=== PATIENT | male | born 1990 | race Caucasian/White ===

== ENCOUNTER 2017-04-16 21:00 | Emergency (ER) | payer SELFPAY ==
[~2017-04-16] VITALS: Ht 172.7 cm; Wt 92.0 kg
[2017-04-16 21:05] VITALS: Ht 172.7 cm; Wt 92.0 kg
[2017-04-17] MEDS ORDERED: HYDR-906 PO (09:08)
== END 2017-04-16 22:25 | disposition left against medical advice (07) ==
LOC: FTE 21:00
DX: Z53.21 Procedure and treatment not carried out due to patient leaving prior to being seen by health care provider (principal)

== ENCOUNTER 2017-04-17 04:28 | Emergency (ER) | payer SELFPAY ==
[~2017-04-17] VITALS: Ht 170.2 cm; Wt 91.5 kg
[2017-04-17 04:37] VITALS: Ht 170.2 cm; Wt 91.5 kg
[2017-04-17 07:04] LABS: BASOPHIL # 0.1 10^3/ul (0.0-0.1); BASOPHILS % 0.3 % (0.0-2.0); EOSINOPHILS % 0.2 % (0.0-7.0); HEMATOCRIT 46.6 % (42.0-52.0); HEMOGLOBIN 15.5 g/dl (14.0-18.0); LYMPHOCYTES # 2.2 10^3/ul (0.8-2.9); LYMPHOCYTES % 12.1 % (15.0-51.0); MEAN CORPUSCULAR HEMOGLOBIN 28.3 pg (29.0-33.0); MEAN CORPUSCULAR HGB CONC 33.3 g/dl (32.0-37.0); MEAN CORPUSCULAR VOLUME 85.2 fl (82.0-101.0); MEAN PLATELET VOLUME 9.1 fl (7.4-10.4); MONOCYTE # 1.2 10^3/ul (0.3-0.9); MONOCYTES % 6.3 % (0.0-11.0); NEUTROPHIL # 14.8 10^3/ul (1.6-7.5); NEUTROPHILS % 80.4 % (39.0-77.0); PLATELET COUNT 371 10^3/UL (140-415); RED BLOOD COUNT 5.47 10^6/ul (4.70-6.10); RED CELL DISTRIBUTION WIDTH 12.2 % (11.5-14.5); WHITE BLOOD COUNT 18.4 10^3/ul (4.8-10.8)
[2017-04-17 07:25] LABS: ALBUMIN 4.6 g/dl (3.3-4.9); ALBUMIN/GLOBULIN RATIO 1.27; BILIRUBIN,INDIRECT 0.5 mg/dl (0-1.1); BILIRUBIN,TOTAL 0.5 mg/dl (0.2-1.3); CALCIUM 9.6 mg/dl (8.4-10.2); CREATININE 0.78 mg/dl (0.61-1.24); POTASSIUM 3.4 mmol/L (3.5-5.1); TOTAL PROTEIN 8.2 g/dl (6.1-8.1)
[2017-04-17 07:31] LABS: BARBITURATES Negative (NEGATIVE); BENZODIAZEPINES Negative (NEGATIVE); CANNABINOIDS Positive (NEGATIVE); COCAINE Negative (NEGATIVE); OPIATES Negative (NEGATIVE)
[2017-04-17 07:35] VITALS: BP 135/78; PULSE 70; RESP 18; TEMP 98.6
[2017-04-17] MEDS ORDERED: SOD CHLORIDE 0.9% 0 ML ONE (08:05)
[2017-04-17] MEDS ORDERED: IOHEXOL 300MG/ML 150 ML BTL ONE (08:05)
--- NOTE | 2017-04-17 08:45 | RADRPT ---
PROCEDURE: CT Abdomen and Pelvis without contrast. CLINICAL INDICATION: Abdominal pain TECHNIQUE: CT scan of the abdomen and pelvis without contrast was performed on a multidetector hig h-resolution CT scanner. The patient was scanned without intravenous contrast. Coronal and sagittal reformatted images were obtained from the axial source images. Images were reviewed on a high-resol [employer] PACS workstation. The total exam CTDI equals 17.99 mGy and the total exam DLP equals 1263.84 m Gy-cm. One or more of the following dose reduction techniques were used: Automated exposure control. Adjustment of the mA and/or kV according to patient size. Use of iterative reconstruction technique. COMPARISON: None FINDINGS: CT abdomen: The lung bases are clear. The heart size is normal, without pericardial thickening or effusion. Th e liver is normal in size and density without focal mass or intrahepatic biliary dilatation. The sp basia is normal in size and homogeneous in density. The stomach is partially collapsed, but is gross ly unremarkable. The pancreas as visualized is normal. The gallbladder is unremarkable. There is n o evidence for biliary dilatation. The adrenal glands are symmetric and normal. The kidneys are sy mmetrically unremarkable as well. No renal calculus or obstructive uropathy or mass lesion is seen. The aorta is of normal caliber. There is no retroperitoneal lymphadenopathy. The mabel hepatis jhonny on is clear. The bowel and mesentery, as visualized, are equally unremarkable. CT pelvis: The small bowel loops situated within the pelvis are unremarkable. The appendix is normal. The pelv ic organs are normal. The pelvic sidewalls and inguinal regions are clear. The sigmoid colon and r ectum are unremarkable. No mass, lymphadenopathy, or free fluid is seen. No acute inflammation is seen. No osteolytic or osteoblastic lesion is detected. IMPRESSION: 1. No mass, lymphadenopathy, or focal acute inflammatory process is identified. 2. Normal appendix. RPTAT: BB .Kamala Weaver MD, MD Date Time Electronically viewed and signed by .Kamala Weaver MD, MD on 04/17/2017 08:44 .O/
[2017-04-17] MEDS ORDERED: HYDR-906 PO (09:08)
--- NOTE | 2017-04-17 09:11 | ERD ---
ER Documentation Chief Complaint Date/Time DATE: 04/17/17 TIME: 09:08 Chief Complaint abd pain x3 hrs; +etoh +marijuana. Pt in ED tonight, but left after intake HPI This 27-year-old male complains of diffuse lower abdominal pain a few hours ago. He states the pain is crampy and intermittent. No nausea vomiting diarrhea no fever. Patient has no back pain no hematuria dysuria. No prior history of pain like this before. The patient admits to smoking methamphetamines about an hour before his pain started. Pain is currently mild. Nothing seems to make it worse or better ROS All systems reviewed and are negative except as per history of present illness. Medications Home Meds Active Scripts Hydrocodone/Acetaminophen ([place] 5-325 Tablet) 1 Each Tablet, 1 TAB PO Q6H Y for PAIN, #7 TAB Prov:VENU JAY DO 04/17/17 Allergies Allergies: Coded Allergies: No Known Allergy (Unverified , 04/17/17) PMhx/Soc Medical and Surgical Hx: pt denies Medical Hx, pt denies Surgical Hx Hx Psychiatric Problems: No Hx Alcohol Use: Yes (daily) Hx Substance Use: Yes (occasional MJ and meth) Hx Tobacco Use: Yes Smoking Status: Current every day smoker FmHx Family History: No coronary disease Physical Exam Vitals Vital Signs Date Time Temp Pulse Resp B/P Pulse Ox O2 Delivery O2 Flow Rate FiO2 04/17/17 04:37 98.6 120 18 137/88 96 Physical Exam Const: Well-developed, well-nourished Head: Atraumatic, normocephalic Eyes: Normal Conjunctiva, PERRLA, EOMI, normal sclera, no nystagmus ENT: Normal External Ears, Nose and Mouth, moist mucus membranes. Neck: Full range of motion. No meningismus, no lymphadenopathy. Resp: Clear to auscultation bilaterally, no wheezing, rhonchi, rales Cardio: Regular rate and rhythm, no murmurs, S1 S2 present Abd: Soft, diffuse lower abdominal tenderness is mild, non distended. Normal bowel sounds, no guarding or rebound, no pulsitile abdominal masses or bruits Skin: No petechiae or rashes, no ecchymosis , no maculopapular rash Back: No midline or flank tenderness Ext: No cyanosis, or edema, FROM x 4, normal inspection, neurovascularly intact x 4 Neur: Awake and alert, STR 5/5 x 4, sensation intact x 4, no focal findings, cerebellum intact Psych: Normal Mood and Affect Result Diagram: 04/17/17 0654 04/17/17 0654 Results 24 hrs Laboratory Tests Test 04/17/17 06:25 04/17/17 06:54 Urine Opiates Screen Negative Urine Barbiturates Negative Urine Amphetamines Screen POSITIVE Urine Benzodiazepines Screen Negative Urine Cocaine Screen Negative Urine Cannabinoids Positive White Blood Count 18.410^3/ul Red Blood Count 5.4710^6/ul Hemoglobin 15.5g/dl Hematocrit 46.6% Mean Corpuscular Volume 85.2fl Mean Corpuscular Hemoglobin 28.3pg Mean Corpuscular Hemoglobin Concent 33.3g/dl Red Cell Distribution Width 12.2% Platelet Count 14069^3/UL Mean Platelet Volume 9.1fl Neutrophils % 80.4% Lymphocytes % 12.1% Monocytes % 6.3% Eosinophils % 0.2% Basophils % 0.3% Nucleated Red Blood Cells % 0.0/100WBC Neutrophils # 14.810^3/ul Lymphocytes # 2.210^3/ul Monocytes # 1.210^3/ul Eosinophils # 0.010^3/ul Basophils # 0.110^3/ul Nucleated Red Blood Cells # 0.010^3/ul Sodium Level 143mmol/L Potassium Level 3.4mmol/L Chloride Level 102mmol/L Carbon Dioxide Level 29mmol/L Anion Gap 15 Blood Urea Nitrogen 17mg/dl Creatinine 0.78mg/dl Glucose Level 106mg/dl Calcium Level 9.6mg/dl Total Bilirubin 0.5mg/dl Direct Bilirubin 0.00mg/dl Indirect Bilirubin 0.5mg/dl Aspartate Amino Transf (AST/SGOT) 29IU/L Alanine Aminotransferase (ALT/SGPT) 54IU/L Alkaline Phosphatase 128IU/L Total Protein 8.2g/dl Albumin 4.6g/dl Globulin 3.60g/dl Albumin/Globulin Ratio 1.27 Lipase 33U/L Current Medications Medications (Trade) Dose Ordered Sig/Yamel Route PRN Reason Start Time Stop Time Status Last Admin Dose Admin IV Flush 10 ml 10 ml STK-MED ONCE .ROUTE 04/17/17 08:05 04/17/17 08:06 DC Sodium Chloride (NS) 0 ml @ ud STK-MED ONCE .ROUTE 04/17/17 08:05 04/17/17 08:06 DC Iohexol (Omnipaque 300mg/ ml) 150 ml STK-MED ONCE .ROUTE 04/17/17 08:05 04/17/17 08:06 DC Procedures/MDM PROCEDURE: CT Abdomen and Pelvis without contrast. CLINICAL INDICATION: Abdominal pain TECHNIQUE: CT scan of the abdomen and pelvis without contrast was performed on a multidetector high-resolution CT scanner. The patient was scanned without intravenous contrast. Coronal and sagittal reformatted images were obtained from the axial source images. Images were reviewed on a high-resolution PACS workstation. The total exam CTDI equals 17.99 mGy and the total exam DLP equals 1263.84 mGy-cm. One or more of the following dose reduction techniques were used: Automated exposure control. Adjustment of the mA and/or kV according to patient size. Use of iterative reconstruction technique. COMPARISON: None FINDINGS: CT abdomen: The lung bases are clear. The heart size is normal, without pericardial thickening or effusion. The liver is normal in size and density without focal mass or intrahepatic biliary dilatation. The spleen is normal in size and homogeneous in density. The stomach is partially collapsed, but is grossly unremarkable. The pancreas as visualized is normal. The gallbladder is unremarkable. There is no evidence for biliary dilatation. The adrenal glands are symmetric and normal. The kidneys are symmetrically unremarkable as well. No renal calculus or obstructive uropathy or mass lesion is seen. The aorta is of normal caliber. There is no retroperitoneal lymphadenopathy. The mabel hepatis region is clear. The bowel and mesentery, as visualized, are equally unremarkable. CT pelvis: The small bowel loops situated within the pelvis are unremarkable. The appendix is normal. The pelvic organs are normal. The pelvic sidewalls and inguinal regions are clear. The sigmoid colon and rectum are unremarkable. No mass, lymphadenopathy, or free fluid is seen. No acute inflammation is seen. No osteolytic or osteoblastic lesion is detected. IMPRESSION: 1. No mass, lymphadenopathy, or focal acute inflammatory process is identified. 2. Normal appendix. RPTAT: BB .Kamala Weaver MD, Date Time Electronically viewed and signed by .Kamala Weaver MD, MD on 04/17/2017 08:44 .O/ CC: VENU JAY DO Patient states that he had felt suicidal in the past does have some family issues and girlfriend issues. He expresses to the nurse who had me go talk to him. The patient is telling me that he is not suicidal currently not homicidal currently. He said he just felt like this in the past before and he had an event with his girlfriend recently. He did speak with his girlfriend the phone while he was in the emergency department and he says he feels much better about her situation now. I had a long talk with him about feeling suicidal or not and he repeatedly tells me that he is not Departure Diagnosis: Primary Impression: Substance abuse Additional Impression: Abdominal pain Abdominal location: lower abdomen, unspecified Qualified Code: R10.30 - Lower abdominal pain Condition: Stable Patient Instructions: Abdominal Pain VENU JAY DO Apr 17, 2017 09:11
== END 2017-04-17 09:30 | disposition home or self-care (01) ==
LOC: E/R 04:28
DX: R10.84 Generalized abdominal pain (principal); F17.210 Nicotine dependence, cigarettes, uncomplicated; F15.10 Other stimulant abuse, uncomplicated
CPT/HCPCS: 36415; 74176; 80053; 80307; 83690; 85025; Q9967

== ENCOUNTER 2019-04-25 15:09 | Emergency (ER) | payer OTHER ==
[~2019-04-25] VITALS: Ht 167.6 cm; Wt 93.4 kg
[~2019-04-25 15:09] MED LIST: HYDR-4011 PO; IBUP-1542 PO; NAPR-985 PO
[2019-04-25 15:15] VITALS: BP 158/92; Ht 167.6 cm; Wt 93.4 kg
[2019-04-25 19:24] VITALS: PULSE 66; RESP 18
== END 2019-04-25 19:26 | disposition home or self-care (01) ==
LOC: FTE 15:09
DX: S19.9XXA Unspecified injury of neck, initial encounter (principal); S69.91XA Unspecified injury of right wrist, hand and finger(s), initial encounter; Y04.2XXA Assault by strike against or bumped into by another person, initial encounter
CPT/HCPCS: 72125